=== PATIENT | female | born 1990 | race Caucasian/White ===

== ENCOUNTER 2019-01-22 11:04 | Emergency (ER) | payer SELFPAY ==
[~2019-01-22] VITALS: Ht 160 cm; Wt 67.8 kg
[2019-01-22 11:06] VITALS: BP 124/65; PULSE 85; RESP 18; Ht 160 cm; Wt 67.8 kg
[2019-01-22] MEDS ORDERED: LEVO5TAB28 PO (11:28)
[2019-01-22] MEDS ORDERED: POLY10DR19 BOTH EYES (11:28)
--- NOTE | 2019-01-22 13:41 | ERD ---
ER Documentation Chief Complaint Chief Complaint headache , facial swelling x 2 weeks , no neuro deficits HPI 28-year-old female presenting with a headache facial swelling for the last 2. Patient noted some swelling in her bilateral eyes with blurry vision. Denies any headaches. Denies any use of medications. 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 She has never had this before. Denies any pain with ocular movements. Denies any runny nose. No other medical problems. NKDA. Surgical history csection. Social history denies ROS All systems reviewed and are negative except as per history of present illness. Medications Home Meds Active Scripts Levocetirizine Dihydrochloride (Xyzal) 5 Mg Tablet, 5 MG PO QPM, #30 TAB Prov:JANN CHARLES PA-C 01/22/19 Polymyxin B Sulfate-TMP* (Polymyxin B-TMP Eye Drops*) 10 Ml Drops, 1 DROP BOTH EYES QID for 7 Days, EA Prov:JANN CHARLES PA-C 01/22/19 Allergies Allergies: Coded Allergies: No Known Allergy (Unverified , 01/22/19) PMhx/Soc Medical and Surgical Hx: pt denies Medical Hx, pt denies Surgical Hx Hx Alcohol Use: No Hx Substance Use: No Hx Tobacco Use: No Smoking Status: Never smoker FmHx Family History: No diabetes, No coronary disease, No other Physical Exam Vitals Vital Signs Date Temp Pulse Resp B/P (MAP) Pulse Ox O2 O2 Flow FiO2 Time Delivery Rate 01/22/19 98.9 85 18 124/65 100 11:06 (84) Physical Exam GENERAL: The patient is well-appearing, well-nourished, in no acute distress HEENT: Atraumatic. Conjunctivae are pink. Pupils equal, round, and reactive to light. There is no scleral icterus. Tympanic membranes clear bilaterally. Oropharynx clear. No nystagmus or photophobia. CHEST: Clear to auscultation bilaterally. There are no rales, wheezes or rhonchi. HEART: Regular rate and rhythm. No murmurs, clicks, rubs or gallops. No S3 or S4. SKIN: Erythema noted to bilateral lower eyelids. No swelling noted. No injection of the sclera. No vesicles or pustules. Procedures/MDM MDM: 48-year-old female presenting with skin irritation. Patient likely has contact dermatitis secondary to an irritant at her work. I have low suspicion for periorbital or orbital cellulitis however I will treat for allergic causes. Patient is discharged with strict ER precautions and told to follow-up with primary care within 1 to 2 days for close evaluation. Patient is told symptoms change or worsen to return immediately to the ER. All questions answered at discharge Departure Diagnosis: Primary Impression: Eye irritation Condition: Stable Patient Instructions: Eye Safety at Work Referrals: [facility] Hours: Mon - Fri 9:00 AM - 5:00 PM Additional Instructions: FOLLOW UP WITH YOUR PRIMARY CARE PHYSICIAN TOMORROW.Return to this facility if you are not improving as expected. JANN CHARLES PA-C Jan 22, 2019 13:41
== END 2019-01-22 11:54 | disposition home or self-care (01) ==
LOC: FTE 11:04
DX: H57.89 Other specified disorders of eye and adnexa (principal)
CPT/HCPCS: 99283